=== PATIENT | female | born 1970 | race Caucasian/White ===

== ENCOUNTER 2016-11-02 02:33 | Emergency (ER) | payer OTHER | END 2016-11-02 03:27 | disposition left against medical advice (07) | LOC: ED 02:33 | DX: Z53.21 Procedure and treatment not carried out due to patient leaving prior to being seen by health care provider (principal) ==

== ENCOUNTER 2017-10-19 12:46 | Emergency (ER) | payer OTHER ==
[~2017-10-19] VITALS: Ht 170.2 cm; Wt 93.0 kg
[2017-10-19 12:50] VITALS: Ht 170.2 cm; Wt 93.0 kg
[2017-10-19 13:27] VITALS: BP 127/80
== END 2017-10-19 13:27 | disposition home or self-care (01) ==
LOC: ED 12:46
DX: N39.0 Urinary tract infection, site not specified (principal)

== ENCOUNTER 2019-05-26 09:34 | Emergency (ER) | payer OTHER ==
[~2019-05-26] VITALS: Ht 170.2 cm; Wt 97.1 kg
[2019-05-26 09:38] VITALS: Ht 170.2 cm; Wt 97.1 kg
[2019-05-26 11:59] VITALS: BP 107/71
== END 2019-05-26 11:59 | disposition home or self-care (01) ==
LOC: ED 09:34
DX: J11.1 Influenza due to unidentified influenza virus with other respiratory manifestations (principal); J98.01 Acute bronchospasm; Z98.890 Other specified postprocedural states
CPT/HCPCS: 87804; J2930; J7613; J7644

== ENCOUNTER 2019-05-30 10:47 | Emergency (ER) | payer OTHER ==
[~2019-05-30] VITALS: Ht 170.2 cm; Wt 96.2 kg
[2019-05-30 11:01] VITALS: BP 119/83; Ht 170.2 cm; Wt 96.2 kg
== END 2019-05-30 15:02 | disposition left against medical advice (07) ==
LOC: ED 10:47
DX: Z53.21 Procedure and treatment not carried out due to patient leaving prior to being seen by health care provider (principal)

== ENCOUNTER 2019-06-03 00:08 | Emergency (ER) | payer OTHER ==
[~2019-06-03] VITALS: Ht 170.2 cm; Wt 99.3 kg
[2019-06-03 00:21] VITALS: Ht 170.2 cm; Wt 99.3 kg
[2019-06-03 03:43] VITALS: BP 119/80
== END 2019-06-03 03:43 | disposition home or self-care (01) ==
LOC: ED 00:08
DX: J18.8 Other pneumonia, unspecified organism (principal); Z90.49 Acquired absence of other specified parts of digestive tract; Z98.890 Other specified postprocedural states
CPT/HCPCS: 87804; 94150; J0696; J1885; Q0092

== ENCOUNTER 2020-05-05 17:04 | Emergency (ER) | payer OTHER, SELFPAY | END 2020-05-05 18:16 | disposition left against medical advice (07) | LOC: ED 17:04 | DX: Z53.21 Procedure and treatment not carried out due to patient leaving prior to being seen by health care provider (principal) ==